=== PATIENT | female | born 1985 | race Caucasian/White ===

== ENCOUNTER → 2017-11-06 | Outpatient (CLI) | payer OTHER ==
[~2017-11-06] MED LIST: FOLI-17 PO; LEVO25TA4 PO; PNV1TABL11 PO; SUPER FOOD; [UNRECOGNIZED DRUG - OTHER]; [UNRECOGNIZED DRUG - OTHER] PO
== END ==
LOC: STAR 13:56
PROVIDERS: ATTEND Specialist
DX: Z02.9 Encounter for administrative examinations, unspecified (principal)

== ENCOUNTER 2017-11-12 10:42 | Day surgery (SDC) | payer OTHER ==
[~2017-11-12] VITALS: Ht 172.7 cm; Wt 114.0 kg
[~2017-11-12 10:42] MED LIST changes: +EPINEPHRINE 1 MG/ML, 1ML ONE; +LIDOCAINE/PF 0.5% ,50ML ONE; +SILVER NITRATE STICK TP ONE; +VASOPRESSIN 20 UNIT/ML, 1ML ONE
[2017-11-12] MEDS ORDERED: PROPOFOL 10 MG/ML, 20ML ONE (11:21)
[2017-11-12] MEDS ORDERED: LIDOCAINE-MPF 2% ,5ML ONE (11:21)
[2017-11-12] MEDS ORDERED: LIDOCAINE GEL 2%, 5ML ONE (11:22)
[2017-11-12] MEDS ORDERED: DEXAMETHASONE 4 MG/ML, 1ML ONE ×2 (11:23)
[2017-11-12] MEDS ORDERED: ONDANSETRON 2MG/ML, 2ML ONE (11:23)
[2017-11-12 11:26] VITALS: BP 123/83
[2017-11-12] MEDS ORDERED: ONDANSETRON 2MG/ML, 2ML IVPush PRN (11:30)
[2017-11-12] MEDS ORDERED: FENTANYL PF 100 MCG/2ML IV PRN (11:30)
[2017-11-12] MEDS ORDERED: OXYcodone 5 MG/5 ML ORAL.SOL UDC PO PRN (11:30)
[2017-11-12] MEDS ORDERED: MEPERIDINE/PF 25MG/0.5ML IVPush PRN (11:30)
[2017-11-12] MEDS ORDERED: morphine SULFATE 10 MG/ML, 1ML IV PRN (11:30)
[2017-11-12] MEDS ORDERED: HYDROcodone/APAP 7.5-325MG/15ML UDC PO PRN (11:30)
[2017-11-12] MEDS ORDERED: ACETAMINOPHEN 325 MG TABLET PO PRN (11:30)
[2017-11-12 12:00] LABS: HCG UR SG 1.024 (1.003-1.030)
[2017-11-12] MEDS ORDERED: LIDOCAINE-MPF 1%, 2ML INFIL ONE (12:00)
[2017-11-12] MEDS ORDERED: LACTATED RINGERS 1,000 ML IV SCH (12:00)
[2017-11-12] MEDS ORDERED: FENTANYL PF 100 MCG/2ML ONE (12:27)
[2017-11-12] MEDS ORDERED: KETOROLAC 30 MG/1 ML ONE (12:47)
[2017-11-12] MEDS ORDERED: ACETAMINOPHEN 650 MG/20.3 ML UDC ONE (13:12)
[2017-11-12] MEDS ORDERED: MEPERIDINE/PF 50 MG/ML ONE (13:12)
[2017-11-12] MEDS ORDERED: OXYcodone 5 MG/5 ML ORAL.SOL UDC ONE (13:12)
== END 2017-11-12 16:10 ==
LOC: OUT 10:42
PROVIDERS: ATTEND Specialist
DX: N84.0 Polyp of corpus uteri (principal)
CPT/HCPCS: 58558; 81025; 88305; J0171; J1100; J1885; J2175; J2405; J2704; J3010; J3490; J2001

== ENCOUNTER 2017-11-12 22:01 | Observation (INO) | payer OTHER ==
[~2017-11-12] VITALS: Ht 172.7 cm; Wt 116.5 kg
[~2017-11-12 22:01] MED LIST changes: -EPINEPHRINE 1 MG/ML, 1ML ONE; -LIDOCAINE/PF 0.5% ,50ML ONE; -SILVER NITRATE STICK TP ONE; -VASOPRESSIN 20 UNIT/ML, 1ML ONE
[2017-11-12 22:03] VITALS: BP 140/70
[2017-11-12] MEDS ORDERED: LIDOCAINE/MPF 2%-EPI 1:200K, 20 ML INFIL ONE (22:30)
[2017-11-12] MEDS ORDERED: LIDOCAINE/PF 1%-EPI 1:200K, 30 ML INFIL ONE (22:30)
[2017-11-12] MEDS ORDERED: FENTANYL PF 100 MCG/2ML ONE ×2 (23:05→23:46)
[2017-11-12] MEDS ORDERED: MIDAZOLAM 1 MG/ML, 2ML ONE ×2 (23:05→23:46)
[2017-11-12] MEDS ORDERED: FERRIC SUBSULFATE TP ONE (23:52)
[2017-11-13] MEDS ORDERED: KETOROLAC 30 MG/1 ML IV PRN (01:00)
[2017-11-13] MEDS ORDERED: ONDANSETRON 2MG/ML, 2ML IV PRN (01:00)
[2017-11-13] MEDS ORDERED: PROMETHAZINE 25 MG SUPP PR ONE (01:00)
[2017-11-13] MEDS ORDERED: HYDROmorphone 1 MG/ML, 1ML IV PRN (01:00)
== END 2017-11-13 03:16 | disposition home or self-care (01) ==
LOC: OR 22:43 → 4NOR 11-13 00:35
PROVIDERS: ADMIT Specialist; ATTEND Specialist
DX: N99.820 Postprocedural hemorrhage of a genitourinary system organ or structure following a genitourinary system procedure (principal)
CPT/HCPCS: 57510; G0378; J0171; J2250; J3010; J3490